=== PATIENT | female | born 1940 | race Caucasian/White ===

== ENCOUNTER 2021-12-23 23:52 | Outpatient (CLI) | payer MEDICARE, OTHER, SELFPAY | END 2021-12-23 23:53 | disposition home or self-care (01) | LOC: AMB 12-27 14:49 | PROVIDERS: PCP Family Medicine; Visit Provider Emergency Medicine Emergency Medical Services | DX: S89.92XA Unspecified injury of left lower leg, initial encounter (principal); W10.9XXA Fall (on) (from) unspecified stairs and steps, initial encounter; Y92.008 Other place in unspecified non-institutional (private) residence as the place of occurrence of the external cause | CPT/HCPCS: A0425; A0429 ==

== ENCOUNTER 2022-01-21 11:08 | Outpatient (CLI) | payer MEDICARE, OTHER, SELFPAY ==
[2022-01-21 17:25] LABS: Albumin* 4.1 g/dL (3.3-5.0)
[2022-01-21 17:26] LABS: Chloride* 103 mmol/L (96-114); Potassium* 4.3 mmol/L (3.6-5.1); Sodium* 137 mmol/L (135-149)
[2022-01-21 17:28] LABS: Aspartate Amino Transferase* 26 U/L (12-35); Bilirubin Total* 0.9 mg/dL (0.1-1.5); Carbon Dioxide* 25 mmol/L (20-32); Creatinine* 0.7 mg/dL (0.5-1.5); Estimated Glomerular Filt Rate 87 ml/min; Total Protein* 6.6 g/dL (6.0-8.3)
[2022-01-21 17:29] LABS: Alanine Aminotransferase* 14 U/L (4-35); Alkaline Phosphatase* 88 U/L (40-150); Blood Urea Nitrogen* 16 mg/dL (7-30); Calcium* 9.3 mg/dL (8.4-10.6); Glucose* 113 mg/dL (60-115)
== END 2022-01-21 11:09 | disposition home or self-care (01) ==
LOC: LONREF 11:09
PROVIDERS: PCP Family Medicine; Visit Provider Nurse Practitioner Family
DX: D64.9 Anemia, unspecified (principal); I10 Essential (primary) hypertension; E78.5 Hyperlipidemia, unspecified
CPT/HCPCS: 80053

== ENCOUNTER 2022-10-20 10:42 | Outpatient (CLI) | payer MEDICARE, OTHER, SELFPAY | END 2022-10-20 10:43 | disposition home or self-care (01) | PROVIDERS: PCP Family Medicine; Visit Provider Family Medicine | DX: I10 Essential (primary) hypertension (principal); E78.5 Hyperlipidemia, unspecified; D64.9 Anemia, unspecified; E04.1 Nontoxic single thyroid nodule | CPT/HCPCS: 80048; 80061; 82607 ==

== ENCOUNTER 2023-10-07 11:15 | Outpatient (CLI) | payer MEDICARE, OTHER, SELFPAY | END 2023-10-07 11:16 | disposition home or self-care (01) | PROVIDERS: PCP Family Medicine; Visit Provider Family Medicine | DX: I10 Essential (primary) hypertension (principal); E78.5 Hyperlipidemia, unspecified; D64.9 Anemia, unspecified; E04.1 Nontoxic single thyroid nodule | CPT/HCPCS: 80048; 80061 ==

== ENCOUNTER 2024-01-21 09:08 | Outpatient (CLI) | payer MEDICARE, OTHER, SELFPAY ==
--- NOTE | 2024-01-21 14:17 | PC.NURSE ---
called Dr. Meyers with a Critical lab of NA @ 124. Dr. Meyers said 120 is her normal. she is fine and no changes.
== END 2024-01-21 09:09 | disposition home or self-care (01) ==
LOC: FRMREF 09:09
PROVIDERS: PCP Family Medicine; Visit Provider Family Medicine
DX: B37.0 Candidal stomatitis (principal)
CPT/HCPCS: 80053

== ENCOUNTER 2024-11-15 09:46 | Outpatient (CLI) | payer MEDICARE, OTHER, SELFPAY | END 2024-11-15 09:47 | disposition home or self-care (01) | LOC: LKVREF 09:48 | PROVIDERS: PCP Nurse Practitioner Family; Visit Provider Nurse Practitioner Family | DX: I10 Essential (primary) hypertension (principal); E78.5 Hyperlipidemia, unspecified | CPT/HCPCS: 80053; 80061 ==